=== PATIENT | female | born 1960 | race African-American/Black ===

== ENCOUNTER 2019-03-27 18:59 | Emergency (ER) | payer OTHER ==
[~2019-03-27] VITALS: Ht 188 cm; Wt 120.2 kg
[~2019-03-27 18:59] MED LIST: AMLODIPINE BESY10 MG PO; HYDROCHLOROTHIA25 M1; HYDROCHLOROTHIA25 M1 PO; HYDROCODONE; NAPROSYN500 MG; NORFLEX100 MG PO; OXYCODONE HCL5 M1; PHENERGAN 25 MG25 M1 PO; PREMARIN 0.3MG0.3 MG PO; [UNRECOGNIZED DRUG - REMARK]
[2019-03-27] MEDS ORDERED: METFORMIN HCL500 MG PO (19:11)
[2019-03-27] MEDS ORDERED: COZAAR 25 MG TA25 M1 PO (19:11)
[2019-03-27] MEDS ORDERED: NORCO 7.5-3251 EACH PO (20:28)
[2019-03-27 20:49] VITALS: BP 144/99
== END 2019-03-27 20:49 | disposition home or self-care (01) ==
LOC: ER 18:59
DX: S82.61XA Displaced fracture of lateral malleolus of right fibula, initial encounter for closed fracture (principal); S86.911A Strain of unspecified muscle(s) and tendon(s) at lower leg level, right leg, initial encounter; M19.90 Unspecified osteoarthritis, unspecified site; I10 Essential (primary) hypertension; F17.210 Nicotine dependence, cigarettes, uncomplicated; Z90.711 Acquired absence of uterus with remaining cervical stump; Z90.49 Acquired absence of other specified parts of digestive tract; W18.39XA Other fall on same level, initial encounter; Y92.89 Other specified places as the place of occurrence of the external cause; Y93.89 Activity, other specified; Y99.8 Other external cause status